=== PATIENT | female | born 1985 | race Caucasian/White ===

== ENCOUNTER → 2018-07-01 | Outpatient (CLI) | payer BC ==
--- NOTE | 2018-07-01 16:46 | XR ---
EXAMINATION TYPE: XR knee limited RT DATE OF EXAM: 07/01/2018 COMPARISON: NONE HISTORY: Knee pain TECHNIQUE: 2 views FINDINGS: I see no fracture nor dislocation. Joint spaces are normal. There is no sign of any joint e ffusion. IMPRESSION: Negative right knee exam.
== END | disposition home or self-care (01) ==
LOC: RADXRYALE 16:32
PROVIDERS: ATTEND Internal Medicine
DX: M25.561 Pain in right knee (principal)